=== PATIENT | male | born 1980 | race Two or more races ===

== ENCOUNTER 2017-03-30 02:28 | Emergency (ER) | payer SELFPAY ==
[~2017-03-30] VITALS: Ht 175.3 cm; Wt 206.8 kg
--- NOTE | 2017-03-30 02:40 | NUR ---
PT BIBSELF, C/O NAUSEA AND VOMITING, +HEMATURIA X 1HR AGO, HX OF KIDNEY STONE. PT AOX3 RR EVEN AND UNLABORED. NO SOB NOTED. NAD NOTED. NO NVD AT THIS TIME. PT NOT DIAPHORETIC. PT GOWNED AND PLACED ON MONITOR. WAITING FOR MD PAZ URINE COLLECTED. CALLED LAB FOR LVN.
[2017-03-30] MEDS ORDERED: MORPHINE SULFATE INJ 2 MG/ML DISP.SYRIN IV ONE (03:00)
[2017-03-30] MEDS ORDERED: ONDANSETRON HCL/PF 4 MG/2 ML VIAL IVP ONE (03:00)
[2017-03-30] MEDS ORDERED: IV NS 0.9% 1,000 ML BAG IV ONE (03:00)
[2017-03-30 03:12] LABS: BASOPHILS % (AUTO) 0.3 % (0.0-2.0); EOSINOPHILS # (AUTO) 0.2 /CMM (0.0-0.7); EOSINOPHILS % (AUTO) 1.2 % (0.0-6.0); HEMATOCRIT 41 % (39-51); HEMOGLOBIN 13.7 g/dL (13.5-17.5); LYMPHOCYTES # (AUTO) 2.2 /CMM (0.8-4.8); LYMPHOCYTES % (AUTO) 17.4 % (20.0-44.0); MEAN CORPUSCULAR HEMOGLOBIN 25 PG (26.0-33.0); MEAN CORPUSCULAR HGB CONC 33 g/dl (31.0-36.0); MEAN CORPUSCULAR VOLUME 76 fL (80-96); MONOCYTES # (AUTO) 0.5 /CMM (0.1-1.30); NEUTROPHILS # (AUTO) 9.6 /CMM (1.8-8.9); NEUTROPHILS % (AUTO) 77.1 % (43.0-81.0); PLATELET COUNT (AUTO) 346 /CMM (150-450); RDW COEFFICIENT OF VARIATION 17.1 (11.5-15.0); RED BLOOD CELL COUNT(AUTO) 5.41 MIL/uL (4.5-6.0); WHITE BLOOD COUNT (AUTO) 12.4 K/uL (4.3-11.0)
[2017-03-30 03:22] LABS: APPEARANCE,URINE CLOUDY (CLEAR); BILIRUBIN,URINE NEGATIVE (NEGATIVE); BLOOD, URINE 3+ Ery/uL (NEGATIVE); CALCIUM, SERUM 8.7 mg/dL (8.5-10.1); COLOR,URINE RED (YELLOW); CREATININE 1.1 mg/dL (0.6-1.3); KETONES,URINE 1+ (NEGATIVE); LEUKOCYTE ESTERASE ,URINE 1+ (NEGATIVE); NITRITE, URINE POSITIVE (NEGATIVE); PROTEIN,URINE 3+ mg/dl (NEGATIVE); UGLUCOSE NEGATIVE (NEGATIVE)
[2017-03-30 03:28] LABS: ALBUMIN 3.6 g/dL (3.4-5.0); BILIRUBIN,DIRECT 0.1 mg/dL (0.0-0.2); BILIRUBIN,TOTAL 0.6 mg/dL (0.2-1.0); TOTAL PROTEIN, SERUM 7.6 g/dL (6.4-8.2)
[2017-03-30 03:42] LABS: RBC,URINE 51-80 /HPF (0-2); SQUAMOUS EPITHELIAL CELL,UR Rare /HPF (None Seen); YEAST,URINE Rare /HPF (None Seen)
[2017-03-30 03:43] LABS: BACTERIA,URINE Rare /HPF (None Seen)
--- NOTE | 2017-03-30 03:51 | NUR ---
[place] AT BEDSIDE
[2017-03-30] MEDS ORDERED: KETOROLAC TROMETHAMINE INJ 30 MG/ML VIAL IV ONE (04:00)
[2017-03-30] MEDS ORDERED: HYDROMORPHONE INJ 2 MG/ML DISP.SYRIN ONE ×2 (04:29→06:10)
[2017-03-30] MEDS ORDERED: ONDANSETRON HCL/PF 4 MG/2 ML VIAL IV ONE (04:30)
[2017-03-30] MEDS ORDERED: HYDROMORPHONE 1 MG/1 ML DISP.SYRIN IV ONE ×3 (04:30→09:00)
[2017-03-30] MEDS ORDERED: ONDANSETRON HCL/PF 4 MG/2 ML VIAL ONE (04:34)
--- NOTE | 2017-03-30 06:11 | NUR ---
M/S 325-1
--- NOTE | 2017-03-30 06:31 | NUR ---
ASSIGNED M/S BED 225 @ [facility]. CALL FOR REPORT. ACCEPTED BY ALESIA ROD.
--- NOTE | 2017-03-30 06:41 | NUR ---
REPORT GIVEN TO SANDHYA SILVERIO FOR [facility] / [facility] BED 255.
--- NOTE | 2017-03-30 06:50 | NUR ---
called med response trip #[id number] 45 min
--- NOTE | 2017-03-30 07:11 | NUR ---
REPORT GIVEN TO SANDHYA ELKINS FOR [facility].
[2017-03-30 07:50] VITALS: BP 149/76
--- NOTE | 2017-03-30 08:48 | NUR ---
REPORT GIVEN TO EMT AT BEDSIDE FOR TRANSFER.
--- NOTE | 2017-03-30 09:02 | NUR ---
Per EMT, transfer would be delayed by 1 hour if dilaudid administered at this time. Dilaudid not administered at this time. Patient agreed to transfer to [place] first, then receive medications at [place] as needed. Patient transferred to [facility] for urology via stretcher.
== END 2017-03-30 09:00 | disposition short-term general hospital (02) ==
LOC: ER 02:34 → UNDOADMIN 06:26 → MED 06:26 → ER 09:00
DX: N20.0 Calculus of kidney (principal); Z88.0 Allergy status to penicillin; Z88.8 Allergy status to other drugs, medicaments and biological substances
CPT/HCPCS: 36415; 76770-TC; 80048-TC; 80076-TC; 81000-TC; 83690-TC; 85025-TC; 87086-TC; A4606; J1170; J2405; Z7610